=== PATIENT | female | born 1955 | race Caucasian/White ===

== ENCOUNTER 2021-02-24 11:59 | Observation (INO) ==
[2021-02-24] MEDS ORDERED: 0.9 % Sodium Chloride 1,000 ML IVC ONE (12:56)
[2021-02-24 13:17] LABS: Bilirubin,Urine Negative (Negative); Blood,Urine Moderate (Negative); Clarity,Urine Clear (Clear); Color,Urine Light-Yellow (Yellow); Glucose,Urine (UA) Normal (Normal); Ketones,Urine Negative (Negative); Leukocyte Esterase,Urine Moderate (Negative); Mucus,Urine Few per lpf (None-Few); Nitrite,Urine Negative (Negative); Protein,Urine Trace mg/dL (Neg-Trace); RBC,Urine 15-30 per hpf (0-3); Specific Gravity,Urine 1.015 (1.010-1.025); Urobilinogen,Urine Normal (Normal); WBC,Urine 15-30 per hpf (0-3)
[2021-02-24 13:28] LABS: Basophils # 0.1 K/mcL (0.0-0.2); Basophils % 0.6 %; Eosinophils % 0.2 %; Hematocrit 37.5 % (35.3-44.9); Hemoglobin 11.8 g/dL (11.5-15.4); Immature Granulocytes % 0.3 % (0-4); Lymphocytes # 2.1 K/mcL (0.6-4.6); Lymphocytes % 15.3 %; Mean Corpuscular HGB Conc 31.5 g/dL (31.6-35.5); Mean Corpuscular Volume 92.1 fL (83.0-100.0); Monocytes # 1.6 K/mcL (0.0-1.3); Monocytes % 11.2 %; Neutrophils # 10.1 K/mcL (1.6-8.9); Platelet Count 329 K/mcL (140-400); Red Blood Count 4.07 M/mcL (3.82-4.97); Segmented Neutrophils % 72.4 %; White Blood Count 13.9 K/mcL (4.3-11.1)
[2021-02-24 13:47] LABS: BUN/Creatinine Ratio 13 (6-26); Blood Urea Nitrogen 11 mg/dL (8-23); Carbon Dioxide 27 mEq/L (23-29); Chloride 104 mEq/L (98-107); Glucose 99 mg/dL (70-105); Osmolality,Calculated 283 (280-300); Potassium 3.4 mEq/L (3.5-5.1); Sodium 137 mEq/L (136-145); eGFR For African Americans > 60 (> 60); eGFR For Non-African Americans > 60 (> 60)
[2021-02-24] MEDS ORDERED: Potassium Chloride 20 MEQ, Lidocaine 1% 2 ML in 0.9 % Sodium Chloride 250 ML IVPB ONE (14:46)
[2021-02-24] MEDS ORDERED: Acetaminophen IV 1,000 MG/100 ML BAG IVPB ONE (15:22)
[2021-02-24] MEDS ORDERED: Ondansetron 4 MG/2 ML VIAL IVP PRN ×3 (15:23→20:10)
[2021-02-24] MEDS ORDERED: Naloxone 0.4 MG/ML INJ IVP PRN ×3 (15:23→20:10)
[2021-02-24] MEDS ORDERED: 0.9 % Sodium Chloride 1,000 ML IVC SCH ×2 (15:30→20:10)
[2021-02-24] MEDS: Famotidine 20 MG/2 ML VIAL IVP SCH ×2 (15:31→16:53)
[2021-02-24] MEDS ORDERED: Ipratropium Neb 0.5 MG NEBULIZER IH PRN (17:59)
[2021-02-24] MEDS ORDERED: *HR* FentaNYL (PF) 100 MCG/2 ML VIAL IVP PRN (17:59)
[2021-02-24] MEDS ORDERED: Albuterol 2.5 MG/3 ML NEBULIZER IH PRN (17:59)
[2021-02-24] MEDS ORDERED: *HR* HYDROmorphone PF 0.5 MG/0.5 ML SYRINGE IVP PRN (17:59)
[2021-02-24] MEDS ORDERED: Nitroglycerin 0.4 MG TAB.SUBL SL PRN (17:59)
[2021-02-24] MEDS ORDERED: Lidocaine HCL 4 ML Topical Solution (Laryng-O-Jet Kit Sterile Pak) TP ONE (18:09)
[2021-02-24] MEDS ORDERED: Dexamethasone 4 MG/ML VIAL ONE (18:09)
[2021-02-24] MEDS ORDERED: *HR* Succinylcholine 200 MG/10 ML VIAL IVP ONE (18:09)
[2021-02-24] MEDS ORDERED: Lidocaine -MPF 2% 2 ML VIAL ONE (18:09)
[2021-02-24] MEDS ORDERED: *HR* FentaNYL (PF) 100 MCG/2 ML VIAL ONE (18:12)
[2021-02-24] MEDS ORDERED: *HR* Midazolam HCl 2 MG/2 ML VIAL ONE (18:12)
[2021-02-24] MEDS ORDERED: *HR* Propofol 200 MG/20 ML VIAL IVP ONE (18:12)
[2021-02-24] MEDS ORDERED: *HR* Meperidine 25 MG/ML SYRINGE IVP ONE (19:18)
[2021-02-25 03:08] LABS: Hematocrit 35.5 % (35.3-44.9); Hemoglobin 11.3 g/dL (11.5-15.4); Mean Corpuscular HGB Conc 31.8 g/dL (31.6-35.5); Mean Corpuscular Hemoglobin 29.6 pg (28.0-33.3); Mean Corpuscular Volume 92.9 fL (83.0-100.0); Mean Platelet Volume 9.4 fL (9.4-12.4); Platelet Count 302 K/mcL (140-400); Red Blood Count 3.82 M/mcL (3.82-4.97); White Blood Count 11.6 K/mcL (4.3-11.1)
[2021-02-25 03:28] LABS: BUN/Creatinine Ratio 11 (6-26); Blood Urea Nitrogen 6 mg/dL (8-23); Carbon Dioxide 23 mEq/L (23-29); Chloride 110 mEq/L (98-107); Glucose 104 mg/dL (70-105); Magnesium 1.6 mg/dL (1.6-2.6); Osmolality,Calculated 288 (280-300); Potassium 3.4 mEq/L (3.5-5.1); Sodium 140 mEq/L (136-145); eGFR For African Americans > 60 (> 60); eGFR For Non-African Americans > 60 (> 60)
[2021-02-25] MEDS ORDERED: Famotidine 20 MG/2 ML VIAL IVP SCH (06:00)
[2021-02-25 07:13] VITALS: BP 128/80
== END 2021-02-25 10:19 | disposition home or self-care (01) ==
LOC: EMEROOARM 11:59 → 3ANU 11:59 → SUATTDRO 15:56 → 3ANU 16:12
PROVIDERS: ADMIT General Practice; ATTEND Student in an Organized Health Care Education/Training Program